=== PATIENT | female | born 1990 | race Caucasian/White ===

== ENCOUNTER 2022-04-15 00:08 | Emergency (ER) | payer OTHER ==
[~2022-04-15] VITALS: Ht 170.2 cm; Wt 68.0 kg
[2022-04-15 02:06] VITALS: BP 127/71
--- NOTE | 2022-04-15 02:19 | NUR ---
CALLED LABS FOR SWABS
--- NOTE | 2022-04-15 02:35 | NUR ---
COVID ANTIGEN AND STREP SWAB COLLECTED AND SENT TO LAB
--- NOTE | 2022-04-15 03:03 | NUR ---
Patient does not wish to proceed with medical care recommended by Dr. LEWIS. Patient given information related to possible complications, up to and including , which could occur as a result of leaving the hospital at this time. Patient verbalizes understanding of risks involved due to leaving against medical advice. Patient has signed AMA form.
== END 2022-04-15 03:04 | disposition left against medical advice (07) ==
LOC: ER 00:25
DX: J02.9 Acute pharyngitis, unspecified (principal); Z20.822 Contact with and (suspected) exposure to COVID-19; Z53.29 Procedure and treatment not carried out because of patient's decision for other reasons
CPT/HCPCS: 99283; 87426; 87081; 87880; C9803; 86403-TC